=== PATIENT | female | born 1955 | race Caucasian/White ===

== ENCOUNTER 2020-08-17 06:38 | Outpatient (CLI) | payer BC, MEDICARE ==
[2020-08-17 17:06] LABS: SARS-CoV-2 MS2 Positive; SARS-CoV-2 N Gene Negative; SARS-CoV-2 S Gene Negative; SARS-CoV-2 by NAA Not Detected (NotDetected); SARS-CoV-2 orf1ab Negative
== END 2020-08-17 06:39 | disposition home or self-care (01) ==
LOC: LABBT 06:38
PROVIDERS: ATTEND Internal Medicine Gastroenterology
DX: Z01.812 Encounter for preprocedural laboratory examination (principal); Z20.828 Contact with and (suspected) exposure to other viral communicable diseases; K21.9 Gastro-esophageal reflux disease without esophagitis; R13.10 Dysphagia, unspecified; R10.12 Left upper quadrant pain; K59.03 Drug induced constipation; Z86.010 Personal history of colon polyps
CPT/HCPCS: 87635; U0003

== ENCOUNTER 2020-08-22 07:17 | Day surgery (SDC) | payer BC, MEDICARE ==
[2020-08-17 13:57] VITALS: BMI 34.7
--- NOTE | 2020-08-22 11:50 | OP ---
DATE OF PROCEDURE: 08/22/2020 PROCEDURES PERFORMED: Esophagogastroduodenoscopy with esophageal dilation over guidewire and snare polypectomy of gastric polyps, and colonoscopy with snare polypectomy and tattoo and hemoclip placement. PREOPERATIVE DIAGNOSES: Esophageal dysphagia and left upper quadrant abdominal pain and history of colon polyps. She had had 3 tubular adenomas removed in 2014. DESCRIPTION OF PROCEDURE: Informed consent was obtained from the patient. She was sedated with total intravenous anesthesia. The bite block was placed and the endoscope was advanced easily to the second portion of the duodenum and retroflexion was performed in the stomach. The esophagus was normal. The stomach had multiple polyps measuring 6 to 12 mm in the body of the stomach. The stomach was otherwise normal including retroflexed views. There were also some similar polyps in the antrum. The pylorus and first and second portions of the duodenum were normal. Three of the polyps were removed by snare cautery polypectomy. One of the polyps had a more white color to it; however, the pit pattern appeared benign, smooth. The polyps were retrieved with a Bird Net. The esophagus was dilated with an 18 mm Savary dilator over a guidewire. Second-look endoscopy showed no change after the dilation. The patient was turned around. Rectal exam was performed and was normal. The colonoscope was advanced to the cecum, where the ileocecal valve and appendiceal orifice were clearly identified. The preparation quality was good. There was a 2.5 cm sessile polyp in the ascending colon. This was removed by snare cautery polypectomy. The second edge of the polyp was removed piecemeal and the entire polyp endoscopically appeared completely resected. There was immediate bleeding from the polypectomy site, which was controlled with injection of epinephrine and hemoclip placement x2. A 1 cm polyp was removed from the transverse colon by snare cautery polypectomy. Again, immediate pulsatile bleeding was controlled with epinephrine 2 mL injection and hemoclip placement x2. The 6 mm polyp was also removed by snare cautery polypectomy next to the 1 cm transverse polyp. The remainder of the colonic mucosa was unremarkable. Retroflexed views in the rectum were normal. IMPRESSION: 1. Multiple gastric body and antrum polyps that appeared benign. Three of these were removed by hot snare as sales representative wire rope polyps. One of those three polyps, however, did have a white color and a smooth pit pattern and mucosal surface. 2. Otherwise normal EGD. The esophagus was dilated to 18 mm with a Savary dilator and there was no change on second-look endoscopy. 3. 2.5 cm sessile ascending polyp was removed by hot snare and immediate pulsatile bleeding was controlled with epinephrine and hemoclip placement. A tattoo was placed next to this polyp. 4. A 1 cm polyp was removed from the transverse colon with hot snare. Again, there was immediate pulsatile bleeding, controlled with epinephrine 2 mL and hemoclip placement x2. 5. A 6 mm transverse polyp was removed by hot snare. 6. Otherwise normal colonoscopy. RECOMMENDATIONS: 1. Await histopathology. 2. Repeat colonoscopy in 1 year. 3. No source for the patient's left upper quadrant abdominal pain was identified by this exam. The next step will be CT scan of the abdomen and pelvis with oral and IV contrast. 4. Follow up in GI clinic. Job ID: [id number]
[2020-08-22] MEDS ORDERED: EPINEPHrine 1 MG/10 ML Abboject SYRINGE ONE (14:20)
[2020-08-22] MEDS ORDERED: Metoclopramide HCl 10 MG/2 ML VIAL ONE (14:20)
[2020-08-22] MEDS ORDERED: Lidocaine 1% PF 5 ML VIAL ONE (14:20)
[2020-08-22] MEDS ORDERED: Ondansetron PF 4 MG/2 ML Vial ONE (14:20)
[2020-08-22] MEDS ORDERED: PROPOFOL 200 MG/20 ML VIAL ONE (14:20)
== END 2020-08-22 12:25 | disposition home or self-care (01) ==
LOC: SDC 07:17
PROVIDERS: ATTEND Internal Medicine Gastroenterology
PROC: 0D758ZZ Dilation of Esophagus, Via Natural or Artificial Opening Endoscopic (ICD-10-PCS; principal; 2020-08-22)
PROC: 0DBK8ZZ Excision of Ascending Colon, Via Natural or Artificial Opening Endoscopic (ICD-10-PCS; principal; 2020-08-22)
PROC: 0DB58ZZ Excision of Esophagus, Via Natural or Artificial Opening Endoscopic (ICD-10-PCS; principal; 2020-08-22)
PROC: 0DBL8ZZ Excision of Transverse Colon, Via Natural or Artificial Opening Endoscopic (ICD-10-PCS; principal; 2020-08-22)
DX: Z12.11 Encounter for screening for malignant neoplasm of colon (principal); D12.2 Benign neoplasm of ascending colon; D12.3 Benign neoplasm of transverse colon; K31.7 Polyp of stomach and duodenum; K21.9 Gastro-esophageal reflux disease without esophagitis; K59.03 Drug induced constipation; K22.2 Esophageal obstruction; E75.5 Other lipid storage disorders; I10 Essential (primary) hypertension; Z86.010 Personal history of colon polyps; Z79.899 Other long term (current) drug therapy; Z79.4 Long term (current) use of insulin; Z88.5 Allergy status to narcotic agent; Z87.891 Personal history of nicotine dependence; Z91.011 Allergy to milk products; Z91.018 Allergy to other foods
CPT/HCPCS: 36416; 88305; 88312; J0171; J2405; J2704; J2765

== ENCOUNTER 2020-09-06 07:54 | Outpatient (CLI) | payer BC, MEDICARE ==
--- NOTE | 2020-09-06 09:17 | CT ---
CT ABDOMEN AND PELVIS WITH ORAL AND IV CONTRAST: HISTORY: Abdominal pain, left upper quadrant pain, nausea. FINDINGS: The lung bases are unremarkable. The liver demonstrates decreased attenuation compared to the spleen consistent with fatty infiltration. No focal mass or abnormal biliary ductal dilatation is seen. T here is a 9 mm low-density lesion in the spleen with a tiny calcification. This is most likely a octavio ign finding. The patient is post cholecystectomy and hysterectomy. The right adrenal gland and left kidney are normal. There is atrophy of the pancreas. There is mild nodular prominence of the left adrenal gland measuring about 8 mm. This was probably present on CT chest of 12/10/2017 and does not appear to e significantly different. A small 5 mm low-density lesion in the right posteromedial cortex is likely a cyst. There is a 17 mm low-density lesion in the right mid renal cortex which does not meet criteria for a simple cyst. No free air, free fluid, or lymphadenopathy is seen in the abdomen or pelvis. The small bowel loops are not abnormally dilated. A normal-appearing appendix is present. There is mild colonic diverticu losis without diverticulitis. Vascular calcifications are present without evidence of aneurysmal dila tation of the abdominal aorta. There are degenerative changes in the spine. IMPRESSION: 1. Fatty liver. 2. Mild colonic diverticulosis. 3. Indeterminate 17 mm right renal lesion. This should be evaluated with an ultrasound. POS: OFF
[2020-09-06] MEDS ORDERED: Iopamidol-370 76% 500 ML 1 ML ONE (09:38)
== END 2020-09-06 07:55 | disposition home or self-care (01) ==
LOC: BICCT 07:54
PROVIDERS: ATTEND Internal Medicine Gastroenterology
DX: K59.03 Drug induced constipation (principal); R10.12 Left upper quadrant pain; K57.30 Diverticulosis of large intestine without perforation or abscess without bleeding; K76.0 Fatty (change of) liver, not elsewhere classified; N28.89 Other specified disorders of kidney and ureter
CPT/HCPCS: 74177; 82565; Q9967

== ENCOUNTER 2021-07-27 18:29 | Outpatient (CLI) | payer BC, MEDICARE ==
[2021-07-28 08:46] LABS: SARS-CoV-2 PCR by NAA Not Detected (NotDetected)
== END 2021-07-27 18:30 | disposition home or self-care (01) ==
LOC: LABBT 18:29
PROVIDERS: ATTEND Internal Medicine Gastroenterology
DX: Z01.812 Encounter for preprocedural laboratory examination (principal); K59.00 Constipation, unspecified; D12.6 Benign neoplasm of colon, unspecified; Z20.822 Contact with and (suspected) exposure to COVID-19
CPT/HCPCS: U0003; U0005

== ENCOUNTER 2021-10-13 13:04 | Outpatient (CLI) | payer MEDICARE, BC ==
[2021-10-13 23:49] LABS: SARS-CoV-2 PCR by NAA Not Detected (NotDetected)
== END 2021-10-13 13:05 | disposition home or self-care (01) ==
LOC: LABBT 13:04
PROVIDERS: ATTEND Internal Medicine Gastroenterology
DX: Z01.812 Encounter for preprocedural laboratory examination (principal); D12.6 Benign neoplasm of colon, unspecified; K59.00 Constipation, unspecified; Z20.822 Contact with and (suspected) exposure to COVID-19
CPT/HCPCS: U0003; U0005

== ENCOUNTER 2021-10-16 07:22 | Day surgery (SDC) | payer OTHER ==
[2021-10-05 16:02] VITALS: BMI 36.6
[2021-10-16] MEDS ORDERED: Ketamine 50 MG/ML (10ML VIAL) ONE (08:02)
[2021-10-16] MEDS ORDERED: PROPOFOL 200 MG/20 ML VIAL ONE (08:22)
[2021-10-16] MEDS ORDERED: Lidocaine 1% PF 5 ML VIAL ONE (08:22)
[2021-10-16] MEDS ORDERED: Glycopyrrolate 0.2 MG/ML 5 ML SYRINGE ONE (08:22)
[2021-10-16] MEDS ORDERED: PHENYLEPHRINE-NS 100 MCG/ML 10 ML SYRINGE ONE (08:22)
== END 2021-10-16 10:12 | disposition home or self-care (01) ==
LOC: SDC 07:22
PROVIDERS: ATTEND Internal Medicine Gastroenterology
PROC: 0DBM8ZX Excision of Descending Colon, Via Natural or Artificial Opening Endoscopic, Diagnostic (ICD-10-PCS; principal; 2021-10-16)
PROC: 0DBL8ZX Excision of Transverse Colon, Via Natural or Artificial Opening Endoscopic, Diagnostic (ICD-10-PCS; 2021-10-16)
PROC: 0DBP8ZX Excision of Rectum, Via Natural or Artificial Opening Endoscopic, Diagnostic (ICD-10-PCS; 2021-10-16)
DX: Z12.11 Encounter for screening for malignant neoplasm of colon (principal); D12.3 Benign neoplasm of transverse colon; K51.40 Inflammatory polyps of colon without complications; K57.30 Diverticulosis of large intestine without perforation or abscess without bleeding; K59.00 Constipation, unspecified; J44.9 Chronic obstructive pulmonary disease, unspecified; E10.9 Type 1 diabetes mellitus without complications; I10 Essential (primary) hypertension; E66.9 Obesity, unspecified; Z68.36 Body mass index [BMI] 36.0-36.9, adult; Z87.891 Personal history of nicotine dependence; Z86.010 Personal history of colon polyps; Z79.899 Other long term (current) drug therapy; Z88.5 Allergy status to narcotic agent; Z91.011 Allergy to milk products; Z91.018 Allergy to other foods
CPT/HCPCS: 88305; J2704